=== PATIENT | male | born 1980 | race Caucasian/White ===

== ENCOUNTER → 2017-02-17 | Outpatient (CLI) | payer SELFPAY ==
[2017-02-17 17:35] LABS: FREE T3 3.99 pg/mL (2.77-5.27)
[2017-02-17 17:49] LABS: THYROID STIMULATING HORMONE 0.46 uIU/mL (0.47-4.68)
== END ==
LOC: OD 15:07
PROVIDERS: ATTEND Emergency Medicine
DX: E16.2 Hypoglycemia, unspecified (principal); N30.90 Cystitis, unspecified without hematuria; F11.20 Opioid dependence, uncomplicated; I10 Essential (primary) hypertension; Z79.899 Other long term (current) drug therapy
CPT/HCPCS: 36415; 84439; 84443; 84481

== ENCOUNTER → 2017-04-06 | Outpatient (CLI) | payer SELFPAY | LOC: OD 08:49 | PROVIDERS: ATTEND Emergency Medicine | DX: N30.90 Cystitis, unspecified without hematuria (principal); E16.2 Hypoglycemia, unspecified; F11.20 Opioid dependence, uncomplicated; Z79.899 Other long term (current) drug therapy; Z20.6 Contact with and (suspected) exposure to human immunodeficiency virus [HIV] ==

== ENCOUNTER → 2017-08-23 | Outpatient (CLI) | payer OTHER ==
--- NOTE | 2017-08-23 16:25 | RADIOLOGY REPORT (SQ) ---
EXAM DESCRIPTION: L SPINE WHOLE COMPLETED DATE/TIME: 08/23/2017 4:18 pm REASON FOR STUDY: B37.9 B37.9 CANDIDIASIS, UNSPECIFIED COMPARISON: None. NUMBER OF VIEWS: Five views including obliques. TECHNIQUE: AP, lateral, oblique, and sacral radiographic images acquired of the lumbar spine. LIMITATIONS: None. FINDINGS: MINERALIZATION: Normal. SEGMENTATION: Normal. No transitional anatomy. ALIGNMENT: Grade 1 anterolisthesis of L5 on S1. VERTEBRAE: Maintained height. No fracture or worrisome bone lesion. DISCS: Disc space narrowing with osteophytes at L5-S1. Mild disc space narrowing at L4-L5. POSTERIOR ELEMENTS: Pedicles and facets are intact. Pars defects at L5. HARDWARE: None in the spine. PARASPINAL SOFT TISSUES: Normal. PELVIS: Intact as visualized. No fractures or worrisome bone lesions. SI joints intact. OTHER: No other significant finding. IMPRESSION: PARS DEFECTS AT L5 WITH GRADE 1 ANTEROLISTHESIS OF L5 ON S1 AND DEGENERATIVE DISC DISEAS E AT L5-S1. TECHNICAL DOCUMENTATION: JOB ID: [id number] [employer]- All Rights Reserved Reading location - IP/workstation name: [email or web address]
--- NOTE | 2017-08-23 16:26 | RADIOLOGY REPORT (SQ) ---
EXAM DESCRIPTION: SACRUM AND COCCYX COMPLETED DATE/TIME: 08/23/2017 4:18 pm REASON FOR STUDY: B37.9 CANDIDIASIS, UNSPECIFIED B37.9 CANDIDIASIS, UNSPECIFIED COMPARISON: None. NUMBER OF VIEWS: Three views. TECHNIQUE: AP, lateral, and tilt views of the sacrum and coccyx. LIMITATIONS: None. FINDINGS: MINERALIZATION: Normal. BONES: No acute fracture or dislocation. No worrisome bone lesions. SOFT TISSUES: No soft tissue swelling. No foreign body. OTHER: No other significant finding. IMPRESSION: NEGATIVE STUDY OF THE SACRUM AND COCCYX. TECHNICAL DOCUMENTATION: JOB ID: [id number] [employer]- All Rights Reserved Reading location - IP/workstation name: [email or web address]
== END ==
LOC: RAD 15:51
DX: B37.9 Candidiasis, unspecified (principal)
CPT/HCPCS: 72110; 72220

== ENCOUNTER 2018-01-26 12:47 | Emergency (ER) | payer SELFPAY ==
--- NOTE | 2018-01-26 13:26 | ER Document Report ---
ED Medical Screen (RME) - General Chief Complaint: Back Pain Stated Complaint: LEG AND BACK PAIN Time Seen by Provider: 01/26/18 13:02 Mode of Arrival: Wheelchair Information source: Patient Notes: Patient presents to the emergency department with chronic leg and back pain. Patient reports 3 years ago he was admitted into the hospital for some time of back infection. He reports he was doing IV drugs at that time. He reports he was transferred from [place] to [place] to [facility] and then to [place] for his back. He reports he was in the hospital for 6 weeks. Patient presents today with the chronic leg and back pain but now reports numbness and tingling to his left leg. Reports he feels like his leg is going to pop fall out. Denies trauma. Denies fever vomiting diarrhea. Reports he has not used drugs in over 3 years. Denies urinary or bowel incontinence or retention. Reports he is always had blood in his urine for the past 3 years. I have greeted and performed a rapid initial assessment of this patient. A comprehensive ED assessment and evaluation of the patient, analysis of test results and completion of the medical decision making process will be conducted by additional ED providers. TRAVEL OUTSIDE OF THE U.S. IN LAST 30 DAYS: No - Related Data Allergies/Adverse Reactions: No Known Allergies Allergy (Unverified 01/26/18 12:49) Past Medical History - Social History Chew tobacco use (# tins/day): No Frequency of alcohol use: None Drug Abuse: None Renal/ Medical History: Denies: Hx Peritoneal Dialysis Physical Exam - Vital signs Vitals: Temp Pulse Resp BP Pulse Ox 98.1 F 75 18 144/83 H 96 01/26/18 12:52 01/26/18 12:52 01/26/18 12:52 01/26/18 12:52 01/26/18 12:52 Course - Vital Signs Vital signs: Temp Pulse Resp BP Pulse Ox 98.1 F 75 18 144/83 H 96 01/26/18 12:52 01/26/18 12:52 01/26/18 12:52 01/26/18 12:52 01/26/18 12:52 Doctor's Discharge - Discharge Referrals: [facility] [Primary Care Provider] - Follow up as needed
--- NOTE | 2018-01-26 15:14 | ER Document Report ---
ED Neck/Back Problem - General Chief Complaint: Back Pain Stated Complaint: LEG AND BACK PAIN Time Seen by Provider: 01/26/18 13:02 Mode of Arrival: Wheelchair TRAVEL OUTSIDE OF THE U.S. IN LAST 30 DAYS: No - HPI Patient complains to provider of: Lower back Onset: Other - 37-year-old male presents for evaluation of low back pain and some pain in his left knee. His left knee feels like it might give out on him a sore that he describes it over the last 3 to as it is been worsening he does not recall a specific twisting or tearing event preceding the onset. He denies any recent falls IV drug use or other injuries. He is never had anything like this in the past.Nothing seemed to make it any better, nothing seems to make it any worse. He has not tried anything to try and help with it. - Related Data Allergies/Adverse Reactions: No Known Allergies Allergy (Unverified 01/26/18 12:49) Past Medical History - General Information source: Patient - Social History Smoking Status: Current Every Day Smoker Chew tobacco use (# tins/day): No Frequency of alcohol use: None Drug Abuse: None Family History: Reviewed & Not Pertinent Patient has suicidal ideation: No Patient has homicidal ideation: No Renal/ Medical History: Denies: Hx Peritoneal Dialysis Review of Systems - Review of Systems Musculoskeletal: Joint pain -: Yes All other systems reviewed and negative Physical Exam - Vital signs Vitals: Temp Pulse Resp BP Pulse Ox 98.1 F 75 18 144/83 H 96 01/26/18 12:52 01/26/18 12:52 01/26/18 12:52 01/26/18 12:52 01/26/18 12:52 - General General appearance: Appears well In distress: None - HEENT Head: Normocephalic Eyes: Normal Conjunctiva: Normal - Respiratory Respiratory status: No respiratory distress Chest status: Nontender Breath sounds: Normal - Cardiovascular Rhythm: Regular Heart sounds: Normal auscultation Murmur: No - Abdominal Inspection: Normal Distension: No distension Bowel sounds: Normal - Back Back: Other - No midline tenderness - Extremities General upper extremity: Normal inspection General lower extremity: Other - Lower extremities are symmetric, the hips are stable, has normal range of motion of hips bilaterally, is normal range of motion of the knees and ankles. 5 out of 5 strength in the right quadriceps hamstring and gastro 4/ 5 strength in the left quadriceps, hamstring, secondary to pain in the knee. Intact sensation in the distal aspect of the knee. Course - Re-evaluation Re-evalutation: 01/26/18 16:07 37-year-old man presents for evaluation of pain in his left knee which he feels like is going to give out on him. He has a history of low back pain and some pain in the joints. 3 years prior he did have discitis and epidural abscess is uncertain which did require hospitalization IV antibiotics. 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 He is adamant that he has not taken anything other than prescribed. He does take gabapentin for neuropathic pain. Currently he is able to ambulate, he does have a slightly limping gait with the left knee. He does seem to have some pain in the left knee with range of motion, there is no obvious effusion, there is no obvious step-off or laxity, there is point tenderness along lateral aspect of the knee suggestive of possible meniscal injury. CRP is normal CBC is normal BMP is relatively unremarkable as such exceptionally unlikely as patient suffering from an epidural abscess. Given his overall well appearance and ability to ambulate will plan for discharge with a return precautions, he is in agreement with this plan at this time. At this time do not believe that he has more serious injury such as cauda equina epidural abscess or other infection as he does not have any incontinence numbness or weakness in the lower extremities. - Vital Signs Vital signs: Temp Pulse Resp BP Pulse Ox 98.1 F 75 18 144/83 H 96 01/26/18 12:52 01/26/18 12:52 01/26/18 12:52 01/26/18 12:52 01/26/18 12:52 - Laboratory Result Diagrams: 01/26/18 15:15 01/26/18 15:15 Laboratory results interpreted by me: 01/26/18 15:15 Hgb 17.3 H Discharge - Discharge Clinical Impression: Knee pain Condition: Stable Disposition: HOME, SELF-CARE Instructions: Suspected Internal Knee Injury ([facility]), Low Back Pain ([facility]), Muscle Strain ([facility]) Prescriptions: Gabapentin 300 mg PO TID #50 capsule Referrals: [facility] [NO LOCAL MD] - Follow up as needed
[2018-01-26 15:28] LABS: ABSOLUTE BASOPHILS # (AUTO) 0.1 10^3/uL (0.0-0.2); ABSOLUTE EOSINOPHILS # (AUTO) 0.1 10^3/uL (0.0-0.6); ABSOLUTE LYMPHOCYTES (AUTO) 1.6 10^3/uL (0.5-4.7); ABSOLUTE MONOCYTES (AUTO) 0.4 10^3/uL (0.1-1.4); ABSOLUTE NEUT (AUTO) 3.3 10^3/uL (1.7-8.2); BASOPHILS % (AUTO) 0.9 % (0-2); EOSINOPHILS % (AUTO) 1.4 % (0-6); HEMATOCRIT 48.3 % (37.9-51.0); HEMOGLOBIN 17.3 g/dL (13.5-17.0); LYMPHOCYTES % (AUTO) 28.9 % (13-45); MEAN CORPUSCULAR HEMOGLOBIN 31.4 pg (27.0-33.4); MEAN CORPUSCULAR HGB CONC 35.7 g/dL (32.0-36.0); MEAN CORPUSCULAR VOLUME 88 fl (80-97); MONOCYTES % (AUTO) 7.1 % (3-13); PLATELET COUNT 197 10^3/uL (150-450); SEGMENTED NEUTROPHILS % (AUTO) 61.7 % (42-78); TOTAL CELLS COUNTED % (AUTO) 100 %; WHITE BLOOD COUNT 5.4 10^3/uL (4.0-10.5)
[2018-01-26 15:46] LABS: ANION GAP 12 (5-19); BLOOD UREA NITROGEN 11 mg/dL (7-20); C-REACTIVE PROTEIN 5.5 mg/L (<10.0); CALCIUM 9.8 mg/dL (8.4-10.2); CARBON DIOXIDE 25 mmol/L (22-30); CHLORIDE 106 mmol/L (98-107); GLUCOSE 89 mg/dL (75-110); POTASSIUM 4.6 mmol/L (3.6-5.0); SODIUM 143.3 mmol/L (137-145)
[2018-01-26 16:22] VITALS: BP 139/98
== END 2018-01-26 16:22 | disposition home or self-care (01) ==
LOC: ER 12:47
DX: M25.562 Pain in left knee (principal); M54.5 Low back pain; F17.200 Nicotine dependence, unspecified, uncomplicated
CPT/HCPCS: 36415; 80048; 85025; 86140; 99283

== ENCOUNTER 2019-08-05 20:14 | Emergency (ER) | payer SELFPAY ==
[2019-08-05] MEDS ORDERED: DIPH/PERTUSS(ACELL)/TETANUS VAC/PF 0.5 ML SYR (>=10YO) IM ONE (21:02)
[2019-08-05] MEDS ORDERED: HYDROCODONE/ACETAMINOPHEN 5-325 MG TABLET PO ONE (21:02)
--- NOTE | 2019-08-05 21:05 | ER Document Report ---
ED Medical Screen (RME) - General Chief Complaint: Finger Injury Stated Complaint: LEFT HAND SWOLLEN FINGER Time Seen by Provider: 08/05/19 20:58 Mode of Arrival: Ambulatory Information source: Patient Notes: Patient presents complaining of left second finger tenderness and swelling. Patient states that he noticed what appeared to be pus to the palmar surface of the finger and attempted to drain it by poking a needle into his finger. Patient denies any fever. Patient denies any known injury. 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 I have greeted and performed a rapid initial assessment of this patient. A comprehensive ED assessment and evaluation of the patient, analysis of test results and completion of the medical decision making process will be conducted by additional ED providers. TRAVEL OUTSIDE OF THE U.S. IN LAST 30 DAYS: No - Related Data Allergies/Adverse Reactions: No Known Allergies Allergy (Verified 08/05/19 20:47) Home Medications: GABAPENTIN. ARTHRITIS MEDICATION Past Medical History - Social History Frequency of alcohol use: None Drug Abuse: None Renal/ Medical History: Denies: Hx Peritoneal Dialysis Physical Exam - Vital signs Vitals: Temp Pulse Resp BP Pulse Ox 98.2 F 73 20 157/95 H 96 08/05/19 20:37 08/05/19 20:37 08/05/19 20:37 08/05/19 20:37 08/05/19 20:37 - General General appearance: Alert Notes: Left second finger tenderness with swelling, patient with yellow discoloration to the palmar surface of the finger overlying the PIP joint Course - Vital Signs Vital signs: Temp Pulse Resp BP Pulse Ox 98.2 F 73 20 157/95 H 96 08/05/19 20:37 08/05/19 20:37 08/05/19 20:37 08/05/19 20:37 08/05/19 20:37
--- NOTE | 2019-08-05 21:40 | RADIOLOGY REPORT (SQ) ---
EXAM DESCRIPTION: XR FINGERS COMPLETED DATE/TME: 08/05/2019 21:02 CLINICAL HISTORY: 39 years, Male, left 2nd finger infection COMPARISON: None. NUMBER OF VIEWS: 3 TECHNIQUE: Left second digit LIMITATIONS: None. FINDINGS: Soft tissue swelling. No acute displaced fracture. No retained radiopaque foreign body. Joint space is unremarkable IMPRESSION: No acute bony injury. No retained radiopaque foreign body. Of note, approximately 30% of commercially available glass is isodense to muscle on plain radiography. copyright 2010 [employer]- All Rights Reserved
[2019-08-05 21:49] LABS: ABSOLUTE BASOPHILS # (AUTO) 0.1 10^3/uL (0.0-0.2); ABSOLUTE EOSINOPHILS # (AUTO) 0.1 10^3/uL (0.0-0.6); ABSOLUTE LYMPHOCYTES (AUTO) 1.9 10^3/uL (0.5-4.7); ABSOLUTE MONOCYTES (AUTO) 0.5 10^3/uL (0.1-1.4); ABSOLUTE NEUT (AUTO) 3.5 10^3/uL (1.7-8.2); BASOPHILS % (AUTO) 1.2 % (0-2); EOSINOPHILS % (AUTO) 2.1 % (0-6); HEMATOCRIT 43.6 % (37.9-51.0); HEMOGLOBIN 15.8 g/dL (13.5-17.0); LYMPHOCYTES % (AUTO) 31.1 % (13-45); MEAN CORPUSCULAR HEMOGLOBIN 32.6 pg (27.0-33.4); MEAN CORPUSCULAR HGB CONC 36.2 g/dL (32.0-36.0); MEAN CORPUSCULAR VOLUME 90 fl (80-97); MONOCYTES % (AUTO) 7.9 % (3-13); PLATELET COUNT 240 10^3/uL (150-450); RED BLOOD COUNT 4.84 10^6/uL (4.35-5.55); RED CELL DISTRIBUTION WIDTH 12.8 % (11.5-14.0); SEGMENTED NEUTROPHILS % (AUTO) 57.7 % (42-78); TOTAL CELLS COUNTED % (AUTO) 100 %; WHITE BLOOD COUNT 6.1 10^3/uL (4.0-10.5)
[2019-08-05 22:02] LABS: ANION GAP 11 (5-19); BLOOD UREA NITROGEN 15 mg/dL (7-20); CALCIUM 9.6 mg/dL (8.4-10.2); CARBON DIOXIDE 24 mmol/L (22-30); CHLORIDE 105 mmol/L (98-107); GLUCOSE 105 mg/dL (75-110); POTASSIUM 4.3 mmol/L (3.6-5.0)
[2019-08-05] MEDS ORDERED: SULFAMETHOXAZOLE/TRIMETHOPRIM 800-160 MG TABLET PO ONE (23:48)
[2019-08-05] MEDS ORDERED: CEPHALEXIN 500 MG CAPSULE PO ONE (23:48)
--- NOTE | 2019-08-05 23:56 | ER Document Report ---
ED General - General Chief Complaint: Finger Injury Stated Complaint: LEFT HAND SWOLLEN FINGER Time Seen by Provider: 08/05/19 20:58 Primary Care Provider: ELSY MUNOZ MD [COMMUNITY BASED STAFF] - Follow up as needed BRANDI ALAN MD [HONORARY] - Follow up as needed Mode of Arrival: Ambulatory TRAVEL OUTSIDE OF THE U.S. IN LAST 30 DAYS: No - Related Data Allergies/Adverse Reactions: No Known Allergies Allergy (Verified 08/05/19 20:47) Home Medications: GABAPENTIN. ARTHRITIS MEDICATION Past Medical History - General Information source: Patient - Social History Smoking Status: Current Every Day Smoker Frequency of alcohol use: None Drug Abuse: None Family History: Reviewed & Not Pertinent Patient has suicidal ideation: No Patient has homicidal ideation: No Renal/ Medical History: Denies: Hx Peritoneal Dialysis Physical Exam - Vital signs Vitals: Temp Pulse Resp BP Pulse Ox 98.2 F 73 20 157/95 H 96 08/05/19 20:37 08/05/19 20:37 08/05/19 20:37 08/05/19 20:37 08/05/19 20:37 Course - Re-evaluation Re-evalutation: 08/05/19 23:58 The patient seems to have cellulites of his left 2nd digit which likely started due to superficial skin breakdown (he has several calluses) - Vital Signs Vital signs: Temp Pulse Resp BP Pulse Ox 98.2 F 73 20 157/95 H 96 08/05/19 20:37 08/05/19 20:37 08/05/19 20:37 08/05/19 20:37 08/05/19 20:37 - Laboratory Result Diagrams: 08/05/19 21:15 08/05/19 21:15 Laboratory results interpreted by me: 08/05/19 21:15 [facility] 36.2 H Discharge - Discharge Clinical Impression: Cellulitis of finger of left hand Condition: Stable Disposition: HOME, SELF-CARE Instructions: Cellulitis ([facility]) Additional Instructions: Take Bactrim and Keflex as prescribed for your finger infection. Wash your finger in soap and water several times a day and keep any area of skin breakdown on your finger covered in antibiotic ointment until your finger is completely healed. Follow up with one of the doctors listed in your discharge paperwork to ensure resolution of symptoms. Return to an ER for worsening redness, swelling, finger pain, fevers, chills, sweats or if worse in anyway despite taking antibiotics as prescribed. Prescriptions: Sulfamethoxazole/Trimethoprim [Bactrim Ds Tablet] 2 tab PO BID #28 tablet Cephalexin Monohydrate [Keflex 500 mg Capsule] 500 mg PO Q6H 7 Days #28 capsule Referrals: ELSY MUNOZ MD [COMMUNITY BASED STAFF] - Follow up as needed BRANDI ALAN MD [HONORARY] - Follow up as needed
[2019-08-06 00:14] VITALS: BP 133/87
== END 2019-08-06 00:11 | disposition home or self-care (01) ==
LOC: ER 20:14
DX: L03.114 Cellulitis of left upper limb (principal); F17.200 Nicotine dependence, unspecified, uncomplicated; Z23 Encounter for immunization
CPT/HCPCS: 36415; 80048; 85025; 90715

== ENCOUNTER 2019-09-23 13:30 | Emergency (ER) | payer SELFPAY ==
[2019-09-23] MEDS ORDERED: MAG HYDROX/AL HYDROX/SIMETH SUSP 30 ML UDCUP PO ONE (13:43)
[2019-09-23] MEDS ORDERED: METOCLOPRAMIDE HCL ORAL SOLN 10 MG/10 ML UDCUP PO ONE (13:43)
[2019-09-23] MEDS ORDERED: LIDOCAINE 2% VISCOUS SOLN 15 ML UDCUP PO ONE (13:43)
[2019-09-23] MEDS ORDERED: PANTOPRAZOLE SODIUM 40 MG VIAL IV ONE (13:44)
--- NOTE | 2019-09-23 13:49 | ER Document Report ---
ED GI/ - General Chief Complaint: Abdominal Pain Stated Complaint: ABDOMINAL PAIN Time Seen by Provider: 09/23/19 13:35 Notes: 39-year-old male presents to the ER complaining of nausea and vomiting. The patient said he is vomited several times starting this morning. He is noticed some dark tenting to his emesis. He denies any blood. Denies black bloody or tarry stools. Patient denies any alcohol use states he does drink socially but not daily or heavily. Patient denies any history of peptic ulcer disease. The patient denies fever chills cough or sore throat. He moved down from [place] over a month ago. His mother was tested but had no travel or high risk history. She just had a common respiratory ailment. Her test does not come back. The patient stated that his abdomen just feels unsettled but no pain. He denies any illicit drugs. He states that he encountered somebody sick he was at a "[employer] house" and he was sick and he decided that it was time to get out of there. TRAVEL OUTSIDE OF THE U.S. IN LAST 30 DAYS: No - Related Data Allergies/Adverse Reactions: No Known Allergies Allergy (Verified 09/23/19 17:07) Past Medical History - Social History Smoking Status: Current Every Day Smoker Drug Abuse: Heroin Family History: Reviewed & Not Pertinent Renal/ Medical History: Denies: Hx Peritoneal Dialysis Review of Systems - Review of Systems Constitutional: denies: Chills, Fever EENT: No symptoms reported Cardiovascular: No symptoms reported Respiratory: No symptoms reported Gastrointestinal: Nausea, Vomiting. denies: Abdominal pain, Diarrhea, Blood streaked bowels, Blood in vomit, Black stools, Rectal bleeding, Fecal i ncontinence Genitourinary: denies: Dysuria, Flank pain, Hematuria Male Genitourinary: denies: Testicular pain Musculoskeletal: No symptoms reported Skin: No symptoms reported Neurological/Psychological: No symptoms reported -: Yes All other systems reviewed and negative Physical Exam - Notes Notes: GENERAL_APPEARANCE: well_nourished, alert, cooperative VITALS: reviewed, see vital signs table. HEAD: no_swelling\\tenderness on the head. EYES: Sclera anicteric, conjunctiva_clear. NOSE: no_nasal_discharge. MOUTH: (-)decreased moisture. THROAT: no_tonsilar_inflammation, no_airway_obstruction. no_lymphadenopathy NECK: supple, no_neck_tenderness, (-)thyromegaly. BACK: no_back_tenderness. CHEST_WALL: no_chest_tenderness. LUNGS: no_wheezing, no_rales, no_rhonchi, (-)accessory muscle use, good air exchange bilateral. HEART: normal_rate, normal_rhythm, normal_S1, normal_S2, (-)S3, (-)S4, no_murmur, no_rub. ABDOMEN: normal_BS, soft, no_abd_tenderness, (-)guarding, (-)rebound, no_organomegaly, no_abd_masses. EXTREMITIES: good pulses in all_extremities, no_swelling\\tenderness in the extremities, no_edema. SKIN: warm, dry, good_color, no_rash. MENTAL_STATUS: speech_clear, oriented_X_3, normal_affect, responds_appropriately to questions. Course - Re-evaluation Re-evalutation: 09/23/19 13:47 39-year-old male comes in with nausea vomiting. Emesis is dark there may be some slight coffee grounds but nothing excessive. This is likely due to gastritis and recurrent vomiting. His abdomen is soft and supple without rebound or guarding. The patient's story is not very clear he was at some random guys house last night he denies any illicit drug use or otherwise. Denies any withdrawal symptoms or anything this morning causing his vomiting. The patient stated his mother was tested for the coronavirus. She did not have any high risk activity either but did have a respiratory infection. We will work the patient up. Certainly peptic ulcer disease could be the case this could be viral gastroenteritis. Again the patient does not meet any high risk factors for coronavirus. His mother did get tested but again she did not meet any of the high risk factors either. The current state recommendations are unless they are hospitalized the patient should be sent home to be quarantined and routine testing should not be done. 09/23/19 17:26 Patient declines to give a urine. He does admit to doing drugs over the weekend. Patient is having some withdrawal symptoms now. I spoke with him about this. His chest x-ray showed questionable infiltrate in the right upper lobe I really do not appreciate that when I look at it. This seems inconsistent with his clinical history. 09/23/19 17:28 I spoke with the patient he likely has a gastritis or early ulcer disease. We will place him on Protonix and Carafate and Zofran. His hemoglobin is stable a CT scan is normal. He has not thrown up at all since he has been here in the emergency department. I spoke with him about relapsing and drug use. He verbalized understanding. Patient is stable at this time and will be discharged follow-up with GI. - Laboratory Result Diagrams: 09/23/19 16:20 09/23/19 16:20 Laboratory results interpreted by me: 09/23/19 09/23/19 16:20 16:20 WBC 13.8 H MCHC 36.3 H Lymph % (Auto) 11.2 L Absolute Neuts (auto) 10.7 H Absolute Monos (auto) 1.5 H Carbon Dioxide 31 H BUN 22 H Total Bilirubin 2.8 H AST 71 H - Diagnostic Test Radiology reviewed: Reports reviewed Radiology results interpreted by me: 09/23/19 17:26 Abdomen/Pelvis CT 09/23/19 13:42 IMPRESSION: Splenomegaly. Grade 2 anterolisthesis of L5 on S1. Chest X-Ray 09/23/19 13:42 IMPRESSION: Cannot exclude limited right upper lobe pneumonia. Discharge - Discharge Clinical Impression: Gastritis and gastroduodenitis with hemorrhage Condition: Good Disposition: HOME, SELF-CARE Instructions: Abdominal Pain ([facility]), Antinausea Medication ([facility]), Clear Liquid Diet ([facility]), Vomiting ([facility]), Gastritis ([facility]) Additional Instructions: Medicine have been e-prescribed to [facility] Prescriptions: Sucralfate [Carafate 1 gm Tablet] 1 gm PO ACHS #30 tablet Pantoprazole Sodium [Protonix] 40 mg PO DAILY #30 tablet. Ondansetron [Zofran Odt 4 mg Tablet] 1 - 2 tab PO Q4H PRN #15 tab.rapdis PRN Reason: For Nausea/Vomiting
--- NOTE | 2019-09-23 15:07 | RADIOLOGY REPORT (SQ) ---
EXAM DESCRIPTION: CHEST SINGLE VIEW IMAGES COMPLETED DATE/TIME: 09/23/2019 2:49 pm REASON FOR STUDY: abd pain COMPARISON: None. EXAM PARAMETERS: NUMBER OF VIEWS: One view. TECHNIQUE: Single frontal radiographic view of the chest acquired. RADIATION DOSE: NA LIMITATIONS: None. FINDINGS: LUNGS AND PLEURA: Ill-defined perihilar/suprahilar opacification in the right upper lobe. MEDIASTINUM AND HILAR STRUCTURES: No masses. Contour normal. HEART AND VASCULAR STRUCTURES: Heart normal in size. Normal vasculature. BONES: No acute findings. HARDWARE: None in the chest. OTHER: No other significant finding. IMPRESSION: Cannot exclude limited right upper lobe pneumonia. TECHNICAL DOCUMENTATION: JOB ID: [id number] 2010 [employer]- All Rights Reserved Reading location - IP/workstation name: [email or web address]
--- NOTE | 2019-09-23 15:34 | RADIOLOGY REPORT (SQ) ---
EXAM DESCRIPTION: CT ABD/PELVIS NO ORAL OR IV IMAGES COMPLETED DATE/TIME: 09/23/2019 2:41 pm REASON FOR STUDY: abd pain COMPARISON: None. TECHNIQUE: CT scan of the abdomen and pelvis performed without intravenous or oral contrast. Images reviewed with lung, soft tissue, and bone windows. Reconstructed coronal and sagittal MPR images revi ewed. All images stored on PACS. All CT scanners at this facility use dose modulation, iterative reconstruction, and/or weight based d osing when appropriate to reduce radiation dose to as low as reasonably achievable (ALARA). [facility]: Dose Right [facility]: CareDose [facility]: Dose Right [facility]: Teradose 4D [facility]: Smart [employer] RADIATION DOSE: CT Rad equipment meets quality standard of care and radiation dose reduction techniq ues were employed. CTDIvol: 6.0 mGy. DLP: 333 mGy-cm.mGy. LIMITATIONS: None. FINDINGS: LOWER CHEST: No significant findings. No nodules or infiltrates. NON-CONTRASTED LIVER, SPLEEN, ADRENALS: Liver is normal. Splenomegaly is present. No adrenal mass. PANCREAS: No masses. No peripancreatic inflammatory changes. GALLBLADDER: No identified stones by CT criteria. No inflammatory changes to suggest cholecystitis. RIGHT KIDNEY AND URETER: No suspicious masses. Assessment limited by lack of IV contrast. No signif icant calcifications. No hydronephrosis or hydroureter. LEFT KIDNEY AND URETER: No suspicious masses. Assessment limited by lack of IV contrast. No signifi cant calcifications. No hydronephrosis or hydroureter. AORTA AND RETROPERITONEUM: No aneurysm. No retroperitoneal masses or adenopathy. BOWEL AND PERITONEAL CAVITY: No obvious masses or inflammatory changes. No free fluid. APPENDIX: Surgically absent. PELVIS, BLADDER, AND ABDOMINAL WALL:No abnormal masses. No free fluid. Bladder normal. BONES: Grade 2 anterolisthesis of L5 on S1. OTHER: No other significant finding. IMPRESSION: Splenomegaly. Grade 2 anterolisthesis of L5 on S1. COMMENT: Quality ID # [id number]: Final reports with documentation of one or more dose reduction techniques (e.g., Automated exposure control, adjustment of the mA and/or kV according to patient size, use of iterative reconstruction technique) TECHNICAL DOCUMENTATION: JOB ID: [id number] 2010 [employer]- All Rights Reserved Reading location - IP/workstation name: [email or web address]
[2019-09-23 16:38] LABS: ABSOLUTE BASOPHILS # (AUTO) 0.1 10^3/uL (0.0-0.2); ABSOLUTE LYMPHOCYTES (AUTO) 1.5 10^3/uL (0.5-4.7); ABSOLUTE MONOCYTES (AUTO) 1.5 10^3/uL (0.1-1.4); ABSOLUTE NEUT (AUTO) 10.7 10^3/uL (1.7-8.2); BASOPHILS % (AUTO) 0.6 % (0-2); EOSINOPHILS % (AUTO) 0.2 % (0-6); HEMATOCRIT 44.1 % (37.9-51.0); LYMPHOCYTES % (AUTO) 11.2 % (13-45); MEAN CORPUSCULAR HEMOGLOBIN 32.1 pg (27.0-33.4); MEAN CORPUSCULAR HGB CONC 36.3 g/dL (32.0-36.0); MEAN CORPUSCULAR VOLUME 89 fl (80-97); MONOCYTES % (AUTO) 10.5 % (3-13); PLATELET COUNT 220 10^3/uL (150-450); RED BLOOD COUNT 4.98 10^6/uL (4.35-5.55); RED CELL DISTRIBUTION WIDTH 12.5 % (11.5-14.0); SEGMENTED NEUTROPHILS % (AUTO) 77.5 % (42-78); TOTAL CELLS COUNTED % (AUTO) 100 %; WHITE BLOOD COUNT 13.8 10^3/uL (4.0-10.5)
[2019-09-23 16:59] LABS: ALKALINE PHOSPHATASE 71 U/L (38-126); ANION GAP 10 (5-19); ASPARTATE AMINO TRANSFERASE 71 U/L (17-59); BILIRUBIN,DIRECT 0.2 mg/dL (0.0-0.4); BILIRUBIN,TOTAL 2.8 mg/dL (0.2-1.3); BLOOD UREA NITROGEN 22 mg/dL (7-20); CALCIUM 9.6 mg/dL (8.4-10.2); CARBON DIOXIDE 31 mmol/L (22-30); CHLORIDE 99 mmol/L (98-107); GLUCOSE 94 mg/dL (75-110); POTASSIUM 4.5 mmol/L (3.6-5.0); TOTAL PROTEIN 8.1 g/dL (6.3-8.2)
[2019-09-23 17:03] LABS: ALCOHOL < 10 mg/dL (NONE DETECTED)
[2019-09-23 18:34] VITALS: BP 132/80
== END 2019-09-23 18:34 | disposition home or self-care (01) ==
LOC: ER 13:30
DX: K29.71 Gastritis, unspecified, with bleeding (principal); R16.1 Splenomegaly, not elsewhere classified; R11.2 Nausea with vomiting, unspecified; F17.200 Nicotine dependence, unspecified, uncomplicated
CPT/HCPCS: 99284; 96374; 36415; 80307; 83690; 85025; 80053; 71045; 74176; J3490; C9113

== ENCOUNTER 2020-01-22 09:07 | Emergency (ER) | payer SELFPAY ==
[2020-01-22] MEDS ORDERED: LIDOCAINE 1% INJ-PF (10 MG/ML) 30 ML SDV INJ ONE (12:00)
[2020-01-22] MEDS ORDERED: IBUPROFEN 800 MG TABLET PO ONE (12:01)
[2020-01-22] MEDS ORDERED: SULFAMETHOXAZOLE/TRIMETHOPRIM 800-160 MG TABLET PO ONE (12:01)
[2020-01-22] MEDS ORDERED: CEPHALEXIN 500 MG CAPSULE PO ONE (12:01)
--- NOTE | 2020-01-22 12:03 | ER Document Report ---
HPI - HPI Patient complains to provider of: Abscess Time Seen by Provider: 01/22/20 11:54 Onset: Last week Onset/Duration: Persistent Quality of pain: Achy Pain Level: 3 Context: Patient complains of multiple abscesses to bilateral axilla. Patient states lesion started about a week ago. Patient did attempt to drain 1 of the lesions to the left axilla with a needle. 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 Patient denies any fever. Associated Symptoms: denies: Fever Exacerbated by: Movement Relieved by: Denies Similar symptoms previously: Yes Recently seen / treated by doctor: No - ROS ROS below otherwise negative: Yes Systems Reviewed and Negative: Yes All other systems reviewed and negative - CONSTITUTIONAL Constitutional: DENIES: Fever, Chills - NEURO Neurology: DENIES: Weakness - DERM Skin Color: Erythema Notes: Abscess to axilla Past Medical History - General Information source: Patient - Social History Smoking Status: Current Every Day Smoker Chew tobacco use (# tins/day): No Frequency of alcohol use: None Drug Abuse: None Occupation: None Family History: Reviewed & Not Pertinent Neurological Medical History: Reports: Other - Chronic nerve pain Renal/ Medical History: Denies: Hx Peritoneal Dialysis Surgical Hx: Negative Vertical Provider Document - CONSTITUTIONAL Agree With Documented VS: Yes Exam Limitations: No Limitations General Appearance: WD/WN, No Apparent Distress - INFECTION CONTROL TRAVEL OUTSIDE OF THE [place] IN LAST 30 DAYS: No - HEENT HEENT: Atraumatic, Normocephalic - NECK Neck: Normal Inspection - RESPIRATORY Respiratory: Breath Sounds Normal, No Respiratory Distress - CARDIOVASCULAR Cardiovascular: Regular Rate, Regular Rhythm - MUSCULOSKELETAL/EXTREMETIES Musculoskeletal/Extremeties: MAEW, FROM - NEURO Level of Consciousness: Awake, Alert, Appropriate Motor/Sensory: No Motor Deficit - DERM Integumentary: Warm, Dry, Abscess - 1 cm tender indurated lesion to right axilla with overlying erythema, patient with 3 separate indurated tender lesions to left axilla, most inferior lesion with some purulent drainage noted Course - Vital Signs Vital signs: Temp Pulse Resp BP Pulse Ox 98.1 F 72 18 152/93 H 98 01/22/20 09:11 01/22/20 09:11 01/22/20 09:11 01/22/20 09:11 01/22/20 09:11 Procedures - Incision and Drainage Right Arm Type: Simple Anesthetic type: 1% Lidocaine Blade size: 11 I&D procedure: Betadine prep applied Incision Method: Incision made by scalpel Amount/type of drainage: Small amount of purulent drainage Notes: 01/22/20 13:45 Right axillary abscess Left Proximal Arm Type: Simple Anesthetic type: 1% Lidocaine Blade size: 11 I&D procedure: Betadine prep applied Incision Method: Incision made by scalpel Amount/type of drainage: Moderate amount of purulent drainage to superior abscess to left axilla Left Lower Type: Simple Anesthetic type: 1% Lidocaine Blade size: 11 I&D procedure: Betadine prep applied Incision Method: Incision made by scalpel Amount/type of drainage: Small amount of bloody drainage to inferior left axillary abscess Discharge - Discharge Clinical Impression: Abscesses of both axillae, Encounter for incision and drainage procedure Condition: Stable Disposition: HOME, SELF-CARE Instructions: Abscess ([facility]), Cephalexin ([facility]), Post Incision and Drainage, Trimethoprim-Sulfa ([facility]) Additional Instructions: Return immediately for any new or worsening symptoms Followup with your primary care provider, call tomorrow to make a followup appointment Apply Bactroban ointment inside each nostril and topically to the wounds Prescriptions: Sulfamethoxazole/Trimethoprim [Bactrim Ds Tablet] 1 each PO BID #20 tablet Mupirocin [Bactroban 2% Ointment 22 gm] 1 applic TP TID #22 gm Cephalexin Monohydrate [Keflex 500 mg Capsule] 500 mg PO Q6H 5 Days #20 capsule [facility] [Provider Group] - Follow up as needed
[2020-01-22 14:22] VITALS: BP 122/84
== END 2020-01-22 14:18 | disposition home or self-care (01) ==
LOC: ER 09:07
DX: L02.412 Cutaneous abscess of left axilla (principal); L02.411 Cutaneous abscess of right axilla; F17.200 Nicotine dependence, unspecified, uncomplicated
CPT/HCPCS: 10061; 99283; J3490

== ENCOUNTER 2020-04-05 17:15 | Emergency (ER) | payer SELFPAY ==
[2020-04-05] MEDS ORDERED: CLINDAMYCIN 600 MG/D5W RTU 600 MG/50 ML RTUPB IV ONE (17:55)
--- NOTE | 2020-04-05 17:58 | ER Document Report ---
ED Medical Screen (RME) - General Chief Complaint: Skin Problem Stated Complaint: SKIN ISSUE Time Seen by Provider: 04/05/20 17:48 Mode of Arrival: Ambulatory Information source: Patient Notes: HPI; 39-year-old male denies any previous medical history does admit to the use of methamphetamines but states he is not used in a month presents emergency room complaining of multiple joint pain for the past 2 days. Also complains of a sore to his right lateral calf that he has had for a month that will not resolve. States is been using topical antibiotic ointment without relief. He denies any fevers. He denies any recent travel. He denies any COVID-19 exposure. PE: Alert and oriented x3. Flat affect. Lungs: Clear to auscultation without rales, rhonchi, wheezes. Heart: Regular rate rhythm without murmurs, rubs, gallops. There is a nonfluctuant abscess noted to the right lateral calf that is warm and tender to palpation. Patient has swelling to both hands with erythema noted. Positive bilateral radial pulses. I have greeted and performed a rapid initial assessment of this patient. A comprehensive ED assessment and evaluation of the patient, analysis of test results and completion of the medical decision making process will be conducted by additional ED providers. I have specifically instructed the patient or family members with the patient to immediately return to any nursing staff should anything change in the patient's condition or with their chief complaint. TRAVEL OUTSIDE OF THE [place] IN LAST 30 DAYS: No - Related Data Allergies/Adverse Reactions: No Known Allergies Allergy (Verified 04/05/20 17:44) Past Medical History Renal/ Medical History: Denies: Hx Peritoneal Dialysis Physical Exam - Vital signs Vitals: Temp Pulse Resp BP Pulse Ox 98.0 F 88 20 130/77 H 98 04/05/20 17:33 04/05/20 17:33 04/05/20 17:33 04/05/20 17:33 04/05/20 17:33 Course - Vital Signs Vital signs: Temp Pulse Resp BP Pulse Ox 98.0 F 88 20 130/77 H 98 04/05/20 17:33 04/05/20 17:33 04/05/20 17:33 04/05/20 17:33 04/05/20 17:33
[2020-04-05 18:41] LABS: ABSOLUTE EOSINOPHILS # (AUTO) 0.1 10^3/uL (0.0-0.6); ABSOLUTE LYMPHOCYTES (AUTO) 1.6 10^3/uL (0.5-4.7); ABSOLUTE MONOCYTES (AUTO) 0.5 10^3/uL (0.1-1.4); ABSOLUTE NEUT (AUTO) 6.2 10^3/uL (1.7-8.2); BASOPHILS % (AUTO) 0.5 % (0-2); EOSINOPHILS % (AUTO) 0.9 % (0-6); HEMATOCRIT 38.9 % (37.9-51.0); HEMOGLOBIN 13.9 g/dL (13.5-17.0); LYMPHOCYTES % (AUTO) 18.5 % (13-45); MEAN CORPUSCULAR HEMOGLOBIN 30.8 pg (27.0-33.4); MEAN CORPUSCULAR HGB CONC 35.6 g/dL (32.0-36.0); MEAN CORPUSCULAR VOLUME 87 fl (80-97); MONOCYTES % (AUTO) 5.7 % (3-13); PLATELET COUNT 220 10^3/uL (150-450); RED CELL DISTRIBUTION WIDTH 13.3 % (11.5-14.0); SEGMENTED NEUTROPHILS % (AUTO) 74.4 % (42-78); TOTAL CELLS COUNTED % (AUTO) 100 %; WHITE BLOOD COUNT 8.4 10^3/uL (4.0-10.5)
[2020-04-05 19:00] LABS: ALBUMIN 4.3 g/dL (3.5-5.0); ALKALINE PHOSPHATASE 94 U/L (38-126); ANION GAP 11 (5-19); ASPARTATE AMINO TRANSFERASE 41 U/L (17-59); BILIRUBIN,DIRECT 0.3 mg/dL (0.0-0.4); BILIRUBIN,TOTAL 0.8 mg/dL (0.2-1.3); BLOOD UREA NITROGEN 15 mg/dL (7-20); C-REACTIVE PROTEIN 25.6 mg/L (<10.0); CALCIUM 9.3 mg/dL (8.4-10.2); CARBON DIOXIDE 26 mmol/L (22-30); CHLORIDE 104 mmol/L (98-107); GLUCOSE 119 mg/dL (75-110); POTASSIUM 4.3 mmol/L (3.6-5.0); TOTAL PROTEIN 7.3 g/dL (6.3-8.2)
[2020-04-05 19:07] LABS: AMORPHOUS SEDIMENT,URINE TRACE /HPF; APPEARANCE,URINE TURBID; BILIRUBIN,URINE NEGATIVE (NEGATIVE); COLOR,URINE AMBER; GLUCOSE, URINE NEGATIVE (NEGATIVE); KETONES,URINE NEGATIVE (NEGATIVE); LEUKOCYTE ESTERASE,URINE NEGATIVE (NEGATIVE); NITRITE,URINE NEGATIVE (NEGATIVE); PROTEIN,URINE 100 mg/dL (NEGATIVE); URINE SPECIFIC GRAVITY 1.026
[2020-04-05 19:18] LABS: URINE BARBITURATES SCREEN NEGATIVE; URINE COCAINE SCREEN NEGATIVE; URINE MARIJUANA (THC) SCREEN NEGATIVE; URINE METHADONE SCREEN NEGATIVE; URINE PHENCYCLIDINE SCREEN NEGATIVE
[2020-04-05 19:20] LABS: ERYTHROCYTE SEDIMENTATION RATE 39 mm/hr (0-15)
[2020-04-05 19:30] LABS: URINE BENZODIAZEPINES SCREEN UNCONFIRMED POSITIVE
[2020-04-05] MEDS ORDERED: KETOROLAC TROMETHAMINE INJ/PF 30 MG/1 ML SDV IV ONE (22:10)
[2020-04-05] MEDS ORDERED: NORMAL SALINE 1000 ML 1,000 ML IV ONE (22:55)
--- NOTE | 2020-04-05 22:58 | ER Document Report ---
ED General - General Chief Complaint: Skin Problem Stated Complaint: SKIN ISSUE Time Seen by Provider: 04/05/20 17:48 Mode of Arrival: Ambulatory TRAVEL OUTSIDE OF THE [place] IN LAST 30 DAYS: No - HPI Context: 39-year-old male with a previous medical history significant for methamphetamine abuse presents to the emergency department complaining of pain and swelling in his hands bilaterally. Patient denies fever, chills, recent meth use. Patient states he last used 2 months ago. Patient is also complaining of a erythematous wound on the lateral surface of his right lower leg that has been present for about a month that has not improved with topical antibiotics. Patient states area is painful and he rates it as a 5 out of 5. Patient is denying cough, diaphoresis, other skin lesions, loss of sense of taste or smell, prior COVID positive history, known exposure to COVID positive persons or persons under investigation for COVID. Patient states that weightbearing on the right leg and touch exacerbates the pain which he rates as a 5 out of 5 and describes as sharp. Patient states there are no alleviating factors for the lesion on his leg or the swelling on his hands. Associated symptoms: Other - See HPI Exacerbated by: Other - See HPI Relieved by: Other - See HPI - Related Data Allergies/Adverse Reactions: No Known Allergies Allergy (Verified 04/05/20 17:44) Past Medical History - General Information source: Patient - Social History Smoking Status: Current Every Day Smoker Frequency of alcohol use: Occasional Drug Abuse: Heroin Family History: Reviewed & Not Pertinent Renal/ Medical History: Denies: Hx Peritoneal Dialysis Musculoskeletal Medical History: Reports Other - History of knee pain Skin Medical History: Reports Hx Cellulitis, Reports Other - History of abscess Review of Systems - Review of Systems Constitutional: No symptoms reported EENT: No symptoms reported Cardiovascular: No symptoms reported Respiratory: No symptoms reported Gastrointestinal: No symptoms reported Genitourinary: No symptoms reported Male Genitourinary: No symptoms reported Musculoskeletal: Other - Hand swelling Skin: Lesions Hematologic/Lymphatic: No symptoms reported Neurological/Psychological: No symptoms reported -: Yes All other systems reviewed and negative Physical Exam - Vital signs Vitals: Temp Pulse Resp BP Pulse Ox 98.0 F 88 20 130/77 H 98 04/05/20 17:33 04/05/20 17:33 04/05/20 17:33 04/05/20 17:33 04/05/20 17:33 - Notes Notes: CONSTITUTIONAL [Vital signs reviewed, Patient appears comfortable, Alert and oriented X 3, Normal stature.] HEAD [Atraumatic, Normocephalic.] EYES [Eyes are normal to inspection, No discharge from eyes, Extraocular muscles intact, Sclera are normal, Conjunctiva are normal.] ENT Nose examination normal, Posterior pharynx normal, Mouth normal to inspection.] NECK [Normal ROM, No jugular venous distention, No meningeal signs, no carotid bruit.] RESPIRATORY CHEST [Chest is nontender, Breath sounds normal, No respiratory distress.] CARDIOVASCULAR [RRR, No murmurs, Normal S1 S2, No rub, No gallop.] ABDOMEN [Abdomen is nontender, No pulsatile masses, No other masses, Bowel sounds normal, No distension, No peritoneal signs, No hernias.] BACK [There is no CVA Tenderness, There is no tenderness to palpation, Normal inspection.] UPPER EXTREMITY Upper extremity exam is significant for edema and both hands with the patient. There is no noticeable erythema the edema is nonpitting. There are no signs of crepitus or deformity LOWER EXTREMITY [Lower extremity exam is significant for a area of macular erythema that is approximately 4 cm in length by 3 cm in width. There is no appreciable induration or fluctuance. The erythema is blanching. There is a circular area of excoriation in the middle of this macular erythematous patch.] NEURO [No focal motor deficits, No focal sensory deficits, Speech normal.] SKIN [Skin is warm, Skin is dry, Skin is normal color. Patient has multiple small excoriations on his extremities, on his face and on the back of his neck which appear to be consistent with neurotic excoriations.] PSYCHIATRIC [Normal affect. ] Course - Re-evaluation Re-evalutation: 04/06/20 01:54 Results of ED MSE discussed with patient and patient's mother. All questions were answered prior to discharge. Emergency signs and symptoms, reasons to return to the emergency department discussed with patient and patient's mother. This MD is uncertain of the etiology of the swelling in the patient's hands. 1 thought it is a possibility of tickborne illness. Titers for Lyme disease, RMSF and ehrlichiosis have been ordered. This MD is going to put the patient on doxy cycline for 21 days and put the patient on prednisone for 5 days to help with the swelling in his hands. While he does have some mild swelling in his hands he has full movement of his fingers, no appearance of sausage digits, cellulitis, felon or flexor tenosynovitis. - Vital Signs Vital signs: Temp Pulse Resp BP Pulse Ox 98.0 F 88 20 130/77 H 98 04/05/20 17:33 04/05/20 17:33 04/05/20 17:33 04/05/20 17:33 04/05/20 17:33 - Laboratory Result Diagrams: 04/05/20 18:20 04/05/20 18:20 Laboratory results interpreted by me: 04/05/20 04/05/20 04/05/20 18:20 18:20 18:45 ESR 39 H Glucose 119 H ALT 52 H C-Reactive Protein 25.6 H Urine Protein 100 H Urine Urobilinogen 4.0 H Urine Ascorbic Acid 40 H Discharge - Discharge Clinical Impression: Cellulitis Qualifiers: Site of cellulitis: extremity Site of cellulitis of extremity: lower extremity Laterality: unspecified laterality Qualified Code(s): L03.119 - Cellulitis of unspecified part of limb Hand swelling Qualifiers: Laterality: bilateral Qualified Code(s): M79.89 - Other specified soft tissue disorders Condition: Stable Disposition: HOME, SELF-CARE Additional Instructions: Return to the Emergency Department without delay if any worse. Be certain to take all of the doxycycline and prednisone as prescribed. The exact cause of the swelling in your hands is uncertain but you have been tested for several different tickborne illnesses including Lyme disease that could have such a presentation has hand swelling. You will hear from the hospital about the results of these test. HOME CARE INSTRUCTIONS & INFORMATION: Thank you for choosing us for your medical needs. We hope you're satisfied with the care you received. After you leave, you must properly care for your problem and, at the same time, observe its progress. Any condition can change. Some illnesses can change rapidly over hours or days. If your condition worsens, return to the Emergency Department or see your physician promptly. ABOUT YOUR X-RAYS AND EKG'S: If you had an EKG or X-rays taken, they have been read by the Emergency Physician. The X-rays and EKG's will also be read by a Radiologist or Grocery Sacker within 24 hours. If discrepancies are noted, you will be notified by telephone. Please be certain the ED has a correct telephone number & address where you can be reached. Also, realize that some fractures or abnormalities do not show up on initial X-rays. If your symptoms continue, see your physician. ABOUT YOUR LABORATORY TEST: If you had laboratory tests, the results have been reviewed by the Emergency Physician. Some test results (for example cultures) may not be available for several days. You will be contacted if any test result shows you need additional treatment. Please be certain the ED has a correct telephone number and address where you can be reached. ABOUT YOUR MEDICATIONS: You will receive instructions on how to take your medicine on the prescription label you receive. Additional information may be provided by the Pharmacy. If you have questions afterwards, call the ED for clarification or further instructions. Some prescribed medications may cause drowsiness. Do not perform tasks such as driving a car or operating machinery without consulting your Pharmacist. If you feel you need a refill of pain me dication, your condition will need re-evaluation. Please do not call for a refill of any medication. ABOUT YOUR SIGNATURE: Signature of this document acknowledges to followin. Understanding that you received emergency treatment and that you may be released before al medical problems are known or treated. Please be certain the ED has a correct phone number & address where you can be reached. 2. Acknowledgement that you will arrange for follow-up care as recommended. 3. Authorization for the Emergency Physician to provide information to your follow-up Physician in order to maximize your care. AT ANY TIME, IF YOUR SYMPTOMS CHANGE SIGNIFICANTLY OR WORSEN OR YOU DEVELOP NEW SYMPTOMS, RETURN TO THE EMERGENCY DEPARTMENT IMMEDIATELY FOR RE-EVALUATION. OUR GOAL IS TO PROVIDE EXCELLENT MEDICAL CARE! WE HOPE THAT WE HAVE MET YOUR EXPECTATIONS DURING YOUR EMERGENCY DEPARTMENT VISIT AND THAT YOU FEEL YOU HAVE RECEIVED EXCELLENT CARE! Cellulitis You have an infection of your skin and underlying soft tissues called cellulitis. This is due to bacteria, which can enter through any break in the skin, or even through an irritated hair follicle. Untreated, cellulitis will usually worsen. Antibiotics are required. Usually, warm packs or warm soaks, and elevation of the infected area are recommended. You should start getting better within 24 to 36 hours. Most infections respond quickly to the right medication. Follow-up care is important, however, to check for abscess (boil) formation, unsuspected foreign body, or resistant infection. If you develop fever, chills, or if the area of infection is becoming rapidly more swollen or painful, call the doctor at once. Prescriptions: Prednisone [Deltasone 20 mg Tablet] 3 tab PO DAILY 4 Days #12 tablet Doxycycline Monohydrate 100 mg PO BID #42 capsule Referrals: BRANDI ALAN MD [HONORARY] - Follow up as needed
[2020-04-05] MEDS ORDERED: METHYLPREDNISOLONE INJ 125 MG/2 ML SDV IV ONE (23:07)
[2020-04-06 02:27] VITALS: BP 133/71
[2020-04-07 14:38] LABS: E. CHAFFEENSIS IGG TITER Negative (Neg:<1:64)
[2020-04-07 23:36] LABS: ROCKY MTN SPOTTED FEV IGG EIA Negative (Negative)
[2020-04-08 06:58] LABS: E. CHAFFEENSIS IGM TITER Negative (Neg:<1:20); ROCKY MTN SPOTTED FEVER IGM AB 0.35 index (0.00-0.89)
== END 2020-04-06 02:25 | disposition home or self-care (01) ==
LOC: ER 17:15
DX: L03.119 Cellulitis of unspecified part of limb (principal); M79.89 Other specified soft tissue disorders; M79.641 Pain in right hand; M79.642 Pain in left hand; F19.10 Other psychoactive substance abuse, uncomplicated; F17.200 Nicotine dependence, unspecified, uncomplicated
CPT/HCPCS: 99283; 96361; 96375; 96365; 96366; 36415; 87040; 83605; 85025; 85652; 86140; 80053; 81001; 86757 ×2; 80307; 82784; 86618 ×2; 86617 ×2; J2930; J1885; J7030

== ENCOUNTER 2020-05-08 17:38 | Emergency (ER) | payer SELFPAY ==
[2020-05-08 18:30] VITALS: BP 146/92
[2020-05-08] MEDS ORDERED: CIPROFLOXACIN HCL/DEXAMETH OTIC DROP 7.5 ML AS ONE (18:51)
--- NOTE | 2020-05-08 18:53 | ER Document Report ---
HPI - HPI Time Seen by Provider: 05/08/20 18:46 Context: Patient is a 39-year-old male with a history of methamphetamine abuse who presents the emergency department with a chief complaint of left ear pain and left ear itchiness. Patient states that about 3 to 4 days ago he started to have ear pain. Denies any drainage. States that he always has itchy scalp. Patient has history of abscesses in the past. Patient states that he felt like he might have had some drainage from his left ear. Denies any fever, body aches, or chills. - ROS Systems Reviewed and Negative: Yes All other systems reviewed and negative - CONSTITUTIONAL Constitutional: DENIES: Fever, Chills - EENT EENT: REPORTS: Ear Pain - Left. DENIES: Sore Throat, Nasal Drainage-Clear, Congestion, Eye problems - MUSCULOSKELETAL Musculoskeletal: DENIES: Extremity pain - DERM Skin Color: Normal Skin Problems: Rash - Around left ear. Past Medical History - General Information source: Patient - Social History Smoking Status: Unknown if Ever Smoked Family History: Reviewed & Not Pertinent Renal/ Medical History: Denies: Hx Peritoneal Dialysis Skin Medical History: Reports Hx Cellulitis Vertical Provider Document - CONSTITUTIONAL Agree With Documented VS: Yes Exam Limitations: No Limitations General Appearance: No Apparent Distress - INFECTION CONTROL TRAVEL OUTSIDE OF THE [place] IN LAST 30 DAYS: No - HEENT HEENT: Atraumatic, Normocephalic, PERRLA, Tympanic Membrane Red Notes: Edema and erythema noted to left external auditory canal NE: Purulent drainage noted to left tympanic membrane. - NECK Neck: Normal Inspection - RESPIRATORY Respiratory: Breath Sounds Normal, No Respiratory Distress - CARDIOVASCULAR Cardiovascular: Regular Rate, Regular Rhythm Pulses: Normal: Radial - MUSCULOSKELETAL/EXTREMETIES Musculoskeletal/Extremeties: FROM - NEURO Level of Consciousness: Awake, Alert, Appropriate Course - Re-evaluation Re-evalutation: 05/11/20 Patient's physical exam and history is consistent with otitis externa. Patient will be placed on Ciprodex drops. I do not suspect patient has mastoiditis, as there is no pain at the mastoid process. Patient also has flaky skin noted to his left pinna. Patient also has purulent drainage noted to his tympanic membrane. We will start the patient on Augmentin for gram-positive and gram- negative coverage. He is in agreement with this plan. Follow-up precautions were given. Verbal discharge instructions were given to the patient. They verbalized understanding. They are stable for discharge. - Vital Signs Vital signs: Temp Pulse Resp BP Pulse Ox 98.1 F 72 16 146/92 H 99 05/08/20 18:25 05/08/20 18:25 05/08/20 18:25 05/08/20 18:25 05/08/20 18:25 Discharge - Discharge Clinical Impression: Otitis externa Qualifiers: Otitis externa type: unspecified type Chronicity: acute Laterality: left Qualified Code(s): H60.502 - Unspecified acute noninfective otitis externa, left ear Otitis media Qualifiers: Otitis media type: mucoid Chronicity: acute Laterality: left Qualified Code(s): H65.112 - Acute and subacute allergic otitis media (mucoid) (sanguinous) (serous), left ear Condition: Stable Disposition: HOME, SELF-CARE Instructions: Use of Ear Drops ([facility]), Otitis Externa ([facility]) Additional Instructions: Otitis Media You have a middle ear infection (otitis media). This is usually a complication of a cold or sore throat. The middle ear cavity becomes filled with infection. Pressure and stretching of the ear drum cause pain. Antibiotics are required. A 10 day course is usually prescribed. A decongestant may be recommended if you have a "runny nose." You may need anesthetic drops or other pain medication. A follow-up exam may be recommended to make sure the infection has completely cleared. If the ear begins to drain, it means the ear drum has ruptured. This will usually heal spontaneously. However, it means you should keep the ear dry until re-examined by a doctor. Call the physician or return for examination at once if there is severe headache, stiff neck, confusion, increasing fever, or dizziness. You should improve significantly within two days. If you're not better, call the doctor. Otitis Externa You have otitis externa -- an infection of the outer ear canal. This can be very painful. It's sometimes called "swimmer's ear," because it often occurs after prolonged water exposure. Many things, such as earwax and dirt in the ear, can contribute to it. The usual treatment is antibiotic/antiinflammatory ear drops. Occasionally, a wick will be placed in the ear to draw in the medicine. If the infection is severe, an oral antibiotic may be prescribed. Pain medication is often needed. Avoid getting water in the ear. Outer ear infections often take longer to heal than you might expect. Some tenderness and ache in the ear may persist for about two weeks. See your physician if you fail to improve as expected. Call the doctor at once if you develop fever, increasing swelling (particularly if it makes your ear "poke out"), severe headache, stiff neck, or decreased hearing. You are being sent home with antibiotic/steroid eardrops. Place 4 drops to your left ear twice a day for 7 days. Follow-up with ear nose and throat as needed. Prescriptions: Amoxicillin/Potassium Clav [Augmentin 875-125 Tablet] 1 tab PO BID #20 tab Referrals: KEIRA JACOME DO [ASSOCIATE] - Follow up as needed
== END 2020-05-08 19:29 | disposition home or self-care (01) ==
LOC: ER 17:38
DX: H60.502 Unspecified acute noninfective otitis externa, left ear (principal); H65.112 Acute and subacute allergic otitis media (mucoid) (sanguinous) (serous), left ear
CPT/HCPCS: 99283; J3490